=== PATIENT | male | born 1965 | race Caucasian/White ===

== ENCOUNTER 2017-03-20 12:35 | Observation (INO) | payer MEDICARE ==
[~2017-03-20] VITALS: Ht 170.2 cm; Wt 90.3 kg
[2017-03-20 12:36] VITALS: BP 153/102
--- NOTE | 2017-03-20 12:51 | Emergency Room Report ---
History of Present Illness Time Seen by 1246 Presenting Problem in Triage Pt arrived:Walked Presenting Problem:CHEST PRESSURE FOR THE LAST 24 HOURS. 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 N Clinical Suspician of Infection? N Mental Status: 1 - Regular (Normal Baseline) Sepsis Risk:Low Sepsis Risk Have you (or family members/close friends) recently traveled outside the [place]? N If Yes, where/when: Have you had exposure to infectious disease within the past month? TB? Other? Specify: Source patient, RN notes reviewed, family, RN/MD Exam Limitations no limitations Comment This is a 51-year-old male patient presenting to the emergency room with midsternal chest pressure, described as "squeezing", for the past 24 hours radiating to the interscapular area, as well as down the LEFT arm, associated with shortness of breath and diaphoresis. Patient's description of symptoms seem to be related somewhat to activity. Patient has a history of colon cancer, diagnosed 3 years ago, currently in remission. He had a stroke approximately as severe leaving his RIGHT side weak and numb. He has a strong family history of coronary artery disease with his father being diagnosed with congestive heart failure and coronary artery disease in his early 40s. Cardiac Chest Pain Chest pain indicative of cardiac Yes Timing/Duration 24 hours Severity/Quality moderate Location central Chest Pain Radiation jaw(s), shoulder(s), back Activities at Onset light activity Modifying Factors worse with exercise, improves with lying down Nitro Today/Relief no nitro taken today Aspirin Treatment Today no aspirin today Beta kwaku treatment today no beta kwaku taken Cardiac risk factors Uncontrolled HTN, Elevated lipids, + family history, HTN controlled, high stress, sedentary lifestyle Prior Workup/Intervention no prior cardiac workup ALLERGIES Coded Allergies: No Known Drug Allergies (03/20/17) Home Medications Reported Medications OXYCODONE HCL (Oxycodone Hcl) 15 MG PO Q6H COLESTIPOL HCL (Colestipol HCl) 1 GM PO QID #120 Insulin Glargine (Lantus Insulin Vial) 60 UNITS SC QHS Alprazolam (Xanax 1MG) 1 MG PO TID #90 TAB DULOXETINE HCL (Duloxetine) 60 MG PO BID #60 Insulin Aspart, Recombinant (Novolog Flexpen) 60 UNITS SC TID #30 VIAL LISINOPRIL (Lisinopril) 20 MG PO DAILY History Medical History General CAD? No Angina: Yes MO: No Hypertension? Yes Hyperlipidemia? Yes CHF? No DVT? No PE? No COPD? No Asthma? No Anemia? No GERD? No Gastric ulcers? No GI Bleed? No Hernia? Yes Thyroid Problems? No Hypothyroidism? No CVA? Yes Seizures? No Diabetes? Yes Insulin Dependent: Yes Insulin Pump: No Home FSBS? Yes Renal Insuffiency? No End Stage Renal Disease? No UTI? No Stones? Yes BPH? Yes GB Disease: No Nephritic Syndrome? No Asplenia? No Hepatitis? No Sickle Cell Disease? No Arthritis? No Migraines? No Cataracts? No Glaucoma? No MRSA? Yes HIV? No TB? No Anxiety? Yes Depression? Yes Cancer? Yes Site: COLON More? No Immunization Hx Ped.Immunizations UTD Yes DT/Tetanus 1-4 YRS Flu N Pneumonia N Surgical Hx Previous Surgery?Y Appendectomy BACK-L4 L5 DISC RENAL STENT FOR STONES. TESTICLE SURGERY COLON WITH COLOSTOMY PORT A CATH Family History Family Hx Diabetes No CAD No Hypertension Yes Hyperlipidemia No Cancer Yes TB No Social History Smoking Hx Smoker: Never Smoker Tobacco: No Packs/day N/A Alcohol Alcohol: No Review of Systems All Other Systems Reviewed and Negative Respiratory shortness of breath Cardiovascular chest pain, palpitations Physical Exam Vital Signs Vital Signs Date Time Temp Pulse Resp B/P Pulse O2 O2 Flow FiO2 Ox Delivery Rate 03/20 182 97.9 62 18 126/70 100 ROOM AIR 03/20 1819 69 03/20 181 97.9 62 18 126/70 03/20 1819 98 ROOM AIR 03/20 181 98.3 69 16 127/95 98 03/20 1757 14 03/20 1646 66 14 132/96 98 03/20 1616 76 12 135/91 96 03/20 1544 78 16 173/108 99 03/20 1236 98.3 80 22 153/102 99 General Appearance normal appearance, WD/WN, mild distress Respiratory Status Yes: trachea midline, chest symmetrical, non tender chest. No: respiratory distress. Lung Sounds bilateral: normal breath sounds, lungs clear. Cardiovascular normal exam, regular rate/rhythm, no peripheral edema, no gallop, no JVD, no murmur, no rub, normal peripheral pulses Gastrointestinal normal bowel sounds, normal exam, non tender, soft, no organomegaly Extremities non-tender, normal range of motion, normal inspection Neurologic alert, oriented x 3, motor weakness (right sided), sensory deficit ( right sided) Mental status depressed affect Skin intact, normal color, warm/dry Medical Decision Making LABS/Meds/Orders Pt receiving controlled substance in ED? No Comment 16:45 - Case discussed with Dr Steven, advised the patient presentation and findings, also multiple risk factors, agreeable with management and plan to hospitalize patient at this time. Dr Steven also requested to consult with cardiology, Dr. Stan Kent, at this time as well. Care transferred Dr. Steven and Dr. Kent at this time. I'll write temporary admission orders, per hospital policy. Upon patient's arrival to the floor the unit nurse will contact Dr. Steven/Dr. Kent in order to obtain full admission/inpatient orders. 17:10 - Case also discussed with Dr. Kent, was of the above. Results/Orders Laboratory Tests 03/20/17 1530: Creatine Kinase 87, CK-MB (CK-2) Rel Index 0.7, CK and CKMB Interp 0.6, Troponin I < 0.02 03/20/17 1245: B-Natriuretic Peptide 29, Amylase 20 L, Lipase 60 L 03/20/17 1245: Sodium 140, Potassium 3.8, Chloride 103, Carbon Dioxide 29, BUN 6 L, Creatinine 0.8, Estimated Creat Clear 135, Estimated GFR (MDRD) 102, Glucose 187 H, Calcium 8.7, Total Bilirubin 0.4, AST 13 L, ALT 23, Alkaline Phosphatase 81, Creatine Kinase 97, CK-MB (CK-2) Rel Index 1.0, CK and CKMB Interp 1.0, Troponin I < 0.02, Total Protein 7.0, Albumin 3.4, Globulin 3.6 H, Albumin/Globulin Ratio 0.9 L, D-Dimer 183, WBC 4.6 L, RBC 4.75, Hgb 13.3 L, Hct 40.2 L, MCV 84.6, RDW 12.7, Plt Count 155, MPV 7.4, Gran % 70.5, Gran # 3.3, Lymphocytes % 17.2, Monocytes % 5.2, Eosinophils % 7.0, Basophils % 0.2, Lymphocytes # 0.8, Monocytes # 0.2, Eosinophils # 0.3, Basophils # 0.0, PUBS MCHC 33.1, MCH 28.0 Current Medication Orders Sig/Terra Start time Last Medication Dose Route Stop Time Status Admin Duloxetine HCl 60 MG DAILY 03/21 0900 AC PO Alprazolam 1 MG TID 03/20 2100 AC PO Insulin Glargine 45 UNITS QHS 03/20 2100 AC 03/20 SC 2105 Alprazolam 0 .STK-MED ONE 03/20 175 DC .ROUTE Ondansetron HCl 0 .STK-MED ONE 03/20 175 DC .ROUTE Morphine Sulfate 0 .STK-MED ONE 03/20 175 DC .ROUTE Alprazolam 1 MG ONCE ONE 03/20 1700 DC 03/20 PO 03/20 1701 1801 Diagnostic Test (Pha) 1 EACH W/MEALS&HS 03/20 1700 AC 03/21 FS 05/19 1659 0611 Insulin Human [rDNA See Dose W/MEALS&HS 03/20 1700 AC 03/20 origin] Insts (1) SC 2105 Lisinopril 20 MG DAILY 03/20 1700 AC 03/20 PO 1840 Morphine Sulfate 4 MG ONCE ONE 03/20 1700 DC 03/20 IV 03/20 1701 1757 Nicotine 21 MG DAILYP PRN 03/20 1700 AC TD Ondansetron HCl 4 MG ONCE ONE 03/20 1700 DC 03/20 IV 03/20 1701 1756 Clonidine HCl 0.1 MG ONCE ONE 03/20 1600 DC 03/20 PO 03/20 1601 1550 Clonidine HCl 0 .STK-MED ONE 03/20 1549 DC .ROUTE Aspirin 324 MG ONCE ONE 03/20 1300 DC 03/20 PO 03/20 1301 1300 Sodium Chloride 10 ML PRN PRN 03/20 1300 AC IV 03/21 1248 Aspirin 0 .STK-MED ONE 03/20 1259 DC .ROUTE Dose Instructions: (1)Insulin Human [rDNA origin]: SEE ADMIN CRITERIA FOR LOW INTENSITY SS Orders Procedure Date/time Status CARDIAC ENZYMES 09/07 0300 Complete DIET-2000 CALORIE ADA 03/20 D Complete CARDIAC ENZYMES 03/20 2100 Complete ADMITTED PT IS ACTUALLY IN BED 03/20 1831 Active Decision to admit 03/20 1625 Active CARDIAC ENZYMES 03/20 1517 Complete LIPASE 03/20 1332 Complete D-DIMER 03/20 1332 Complete BRAIN NATRIURETIC PEPTIDE 03/20 1332 Complete AMYLASE 03/20 1332 Complete ELECTROCARDIOGRAM REQUEST 03/20 1249 Active IV SALINE LOCK 03/20 1249 Active CBC WITH AUTO DIFF 03/20 1249 Complete CARDIAC ENZYMES 03/20 1249 Complete CHEM 12 PROFILE 03/20 1249 Complete ADMIT PATIENT 03/20 UNK Active 12 LEAD EKG-BESSON (INITIAL) 03/20 UNK Active PULSE OXIMETRY REQUEST 03/20 UNK Active OXYGEN REQUEST 03/20 UNK Active VITAL SIGNS 03/20 UNK Active OPTICAL MODEL MAKER AND TESTER 03/20 UNK Active POM NURSE HERMAN HOSE ORDER 03/20 UNK Active CODE STATUS 03/20 UNK Active PATIENT ACTIVITY ORDER 03/20 UNK Active [facility] PHYS CONSULT 03/20 UNK Active CM/EKG CM/order checker Rhythm Normal Sinus Rhythm Rate 88 Ectopy No Comments no acute ischemic changes EKG rate, NSR, rhythm, no evid. of ischemic chgs, no ectopy, normal QRS, normal CO, normal EKG, no EKG for comparison, non-spec. ST/Twave chgs, ST elevation, ST depression, LBBB, RBBB, ectopy, abnormal Q waves XRAY/CT/US XRAY/CT/US XRAY chest XR interpretation by discussed w/radiologist Xray Results no infiltrates, normal heart size, normal lung inflation angus Departure Departure Time of Disposition 1701 Disposition Still a Patient Clinical Impression Primary Impression: Chest pain Qualifiers: Chest pain type: unspecified Qualified Code: R07.9 - Chest pain, unspecified Condition STABLE Referrals DRISS WU APRN (Family) ED Critical Care Critical Care No at [phone]
[2017-03-20 13:01] LABS: HEMOGLOBIN 13.3 g/dL (14.1-18.0); LYMPH # 0.8 K/mm3 (0.7-4.5); LYMPH % 17.2 % (10-50)
[2017-03-20 13:19] LABS: BUN 6 mg/dL (7-18)
[2017-03-20 13:32] LABS: GFR (ESTIMATED) 102 ML/MIN (>60)
--- NOTE | 2017-03-20 14:30 | RADIOLOGY REPORT PS360 ---
CHEST-PORTABLE HISTORY: Chest pain CP ORDERING PHYSICIAN: Jake Álvarez MD PATIENT AGE: 51 years COMPARISON: 07/06/2016 FINDINGS: Left subclavian Port-A-Cath is present with the tip in the region superior vena cava. The cardiomediastinal silhouette and pulmonary vascularity are within normal limits. Left hilum appears somewhat prominent and may all be due to overlying vasculature. PA and lateral chest upright may firm. The lungs are clear without infiltrates, suspicious nodules, or pleural effusions. No acute bony abnormalities. IMPRESSION: Mild prominence of the left hilum. Consider follow-up with upright PA and lateral chest No acute finding
--- NOTE | 2017-03-20 14:30 | RADIOLOGY REPORT PS360 ---
CHEST-PORTABLE HISTORY: Chest pain CP ORDERING PHYSICIAN: Jake lÁvarez MD PATIENT AGE: 51 years COMPARISON: 07/06/2016 FINDINGS: Left subclavian Port-A-Cath is present with the tip in the region superior vena cava. The cardiomediastinal silhouette and pulmonary vascularity are within normal limits. Left hilum appears somewhat prominent and may all be due to overlying vasculature. PA and lateral chest upright may firm. The lungs are clear without infiltrates, suspicious nodules, or pleural effusions. No acute bony abnormalities. IMPRESSION: Mild prominence of the left hilum. Consider follow-up with upright PA and lateral chest No acute finding
--- NOTE | 2017-03-20 18:11 | HISTORY AND PHYSICAL REPORT ---
See Addendum History and Physical (FCA) Date of admission: 03/20/17 Chief complaint: chest pain History: History of Present Illness: Mr Dawkins is a 51 year old male with history of rectal cancer with colostomy, DM, pain management, and HTN who presented to [facility] ER after experiencing intermittent left anterior chest pain/pressure since yesterday afternoon. The pain did radiate up the left side of the neck and he was SOB. The intermittent discomfort persisted through today and his made him come to the ER. He did receive clonidine, ASA and NTG with pain relief. The pressure remains. He was admitted for cardiac workup. Dr. Kent was notified in the ER of patient admission and consult. He is a patient of Melissa [facility]son's [facility]. He has a complicated history of rectal cancer which has been treated with surgery, Chemo and radiation. He is followed by Dr. Henderson. He also describes 3 syncopal episodes which required CPR with transport to via helicopter. With one episode he was told that he had a stroke. The last episode was 1 year ago. No known previous cardiac events. Past Medical History: Medical History: CAD? No Angina: Yes MA: No Hypertension? Yes Hyperlipidemia? Yes CHF? No DVT? No PE? No COPD? No Asthma? No Anemia? No GERD? No Gastric ulcers? No GI Bleed? No Hernia? Yes Thyroid Problems? No Hypothyroidism? No CVA? Yes Seizures? No Diabetes? Yes Insulin Dependent: Yes Insulin Pump: No Home FSBS? Yes Renal Insuffiency? No UTI? No Stones? Yes BPH? Yes GB Disease: No Nephritic Syndrome? No Asplenia? No Hepatitis? No Sickle Cell Disease? No Arthritis? No Migraines? No Cataracts? No Glaucoma? No MRSA? Yes HIV? No TB? No Anxiety? Yes Depression? Yes Cancer? Yes Site: COLON More? No Additional hx: Tobacco use disorder Surgical history: Previous Surgery?Y Appendectomy BACK-L4 L5 DISC RENAL STENT FOR STONES. TESTICLE SURGERY COLON WITH COLOSTOMY PORT A CATH Medications: Reported Medications Insulin Glargine (Lantus Insulin Vial) 60 UNITS SC QHS Alprazolam (Xanax 1MG) 1 MG PO TID #90 TAB DULOXETINE HCL (Duloxetine) 60 MG PO BID #60 Insulin Aspart, Recombinant (Novolog Flexpen) 60 UNITS SC TID #30 VIAL OXYCODONE HCL (Oxycodone Hcl) 15 MG PO Q 6 LISINOPRIL (Lisinopril) 20 MG PO DAILY Allergies: Coded Allergies: No Known Drug Allergies (03/20/17) Family History: Family history: Postive for: CAD, DM, cancer. Social History: Smoking Hx Tobacco: Yes Smoker: Never Smoker Type: Snuff (dips) Packs/day: N/A Are you exposed to second hand No Alcohol: Alcohol: No Hx of Drug Use: Drug Use? No Patien't marital status is: Review of Systems: Constitutional No: chills. Cardiovascular Positive for: chest pain, edema. No: palpitations. Respiratory Positive for: shortness of air. No: hemoptysis, pleuritic pain, wheezing. GI Positive for: rectal pain. No: GERD, abdominal pain, constipation, diarrhea, hematemeis, hematochezia, melena, vomitting (colostomy). (male) No: frequency, hematuria. Neurological Positive for: syncope, weakness (right sided). No: dizziness, headache, seizure. Musculoskeletal No: extremity pain, joint pain. Psychiatric Positive for: anxious, depression. Physical Exam: Vital signs: 1ST Vital Signs Result Date Time Pulse Ox 99 03/20 1236 B/P 153/102 03/20 1236 Temp 98.3 03/20 1236 Pulse 80 03/20 1236 Resp 22 03/20 1236 Exam: General appearance: alert, no acute distress Eyes: anicteric, PERRLA ENT: mucous membranes moist Neck: non-tender, full range of motion, supple, carotid bruit (absent bilaterally), thyroid (normal) Cardiovascular: normal sinus rhythm, regular rate & rhythm Respiratory: clear to auscultation (bilat anterior and posterior) ABD: non-distended, normal bowel sounds, soft, no tenderness, no guarding, bowel sounds present, colostomy, hernia Extremities: normal exam, no peripheral edema, no calf tenderness Lab data: Labs: Laboratory Tests 03/20/17 1530: Creatine Kinase 87, CK-MB (CK-2) Rel Index 0.7, CK and CKMB Interp 0.6, Troponin I < 0.02 03/20/17 1245: B-Natriuretic Peptide 29, Amylase 20 L, Lipase 60 L 03/20/17 1245: Sodium 140, Potassium 3.8, Chloride 103, Carbon Dioxide 29, BUN 6 L, Creatinine 0.8, Estimated Creat Clear 135, Estimated GFR (MDRD) 102, Glucose 187 H, Calcium 8.7, Total Bilirubin 0.4, AST 13 L, ALT 23, Alkaline Phosphatase 81, Creatine Kinase 97, CK-MB (CK-2) Rel Index 1.0, CK and CKMB Interp 1.0, Troponin I < 0.02, Total Protein 7.0, Albumin 3.4, Globulin 3.6 H, Albumin/Globulin Ratio 0.9 L, D-Dimer 183, WBC 4.6 L, RBC 4.75, Hgb 13.3 L, Hct 40.2 L, MCV 84.6, RDW 12.7, Plt Count 155, MPV 7.4, Gran % 70.5, Gran # 3.3, Lymphocytes % 17.2, Monocytes % 5.2, Eosinophils % 7.0, Basophils % 0.2, Lymphocytes # 0.8, Monocytes # 0.2, Eosinophils # 0.3, Basophils # 0.0, PUBS MCHC 33.1, MCH 28.0 Radiology results: Results: 03/20/17 CXR IMPRESSION: Mild prominence of the left hilum. Consider follow-up with upright PA and lateral chest No acute finding Diagnosis(es): 1. Chest pain 2. IDDM (insulin dependent diabetes mellitus) 3. Weakness of right side of body 4. History of rectal cancer 5. Colostomy in place 6. Depression 7. Rectal pain, chronic Plan: Cardiac workup at 1811 at 1832
[2017-03-20 18:19] VITALS: BP 126/70
[2017-03-20 18:29] VITALS: BP 126/70
[2017-03-20 19:11] VITALS: BP 106/66
[2017-03-20 23:46] VITALS: BP 111/75
[2017-03-21] VITALS (7 sets, daily range): BP systolic 96–196; BP diastolic 48–79
--- NOTE | 2017-03-21 07:28 | PHARMACY CLINIC NOTE ---
Patient Demographics Patient Demographics Admission date: 03/20/17 Date: 03/21/17 Time: 726 Allergies Coded Allergies: No Known Drug Allergies (03/20/17) HEIGHT- FT: 5 IN: 7.00 K.323 VTE General Information Labs: Laboratory Tests 03/20 1245 Hematology Hgb (14.1 - 18.0 g/dL) 13.3 L Hct (42.0 - 52.0 %) 40.2 L Plt Count (142 - 424 K/mm3) 155 Disclaimer The following section includes nursing documentation that has been pulled in for pharmacy review. Patient's VTE score: 3 Patient's VTE Risk: LOW RISK Clinical trial participant? No VTE prophylaxis F [id number] VTE prophylaxis ordered? Yes Type of prophylaxis/treatment: HERMAN at 0728
--- NOTE | 2017-03-21 07:42 | CONSULT NOTE ---
Standard Demographics Patient Demo Date of Consultation: 03/21/17 Referring Provider: Sharan Steven MD Reason for Consultation: Chest pain PRIMARY DIAGNOSIS: CHEST PAIN Problem list Problem list: 1. History of rectal cancer diagnosed in 2013, status post surgery, chemotherapy and radiation with last surgery in 2015. A. History of colonoscopy this year without recurrence of cancer and thus far. 2. Diabetes mellitus, type II onset during his chemotherapy approximately 2014 3. Family history of coronary artery disease in both mother and father in their late 50s/early 60s 4. Hypertension, treated for about 5 years 5. History of CVA with right-sided weakness 6. Hyperlipidemia 7. Tobacco use in the form of snuff. 8. Cardiac cath, 11/28/2012, Dr. Johnson Tellez, mild CAD of LAD and RCA with normal LVEF. History of present illness: History of present illness: 51-year-old white male with history of rectal carcinoma status post surgery, chemotherapy and radiation of the last 3 years was admitted for onset of chest pressure at rest. Patient states symptoms began on the evening of 03/19/2017 with a heaviness in the chest. At times he would have a worsening of symptoms with radiation to the LEFT arm and shoulder and into the LEFT neck with associated shortness of breath and diaphoresis. The worst of the symptoms would only last about 15 minutes. He denies any aggravating or alleviating factors. He was brought to the emergency department at the insistence of his . He was admitted for observation. Troponins have returned normal 3. Electrocardiogram is sinus and normal. Patient does relate having a cardiac catheterization at [facility] approximately 2-3 years ago. Reportedly no need for intervention. Cardiology consulted for evaluation. Past Medical History: General: Hypertension Yes CVA Yes Seizures No TB No COPD No Asthma No Diabetes Yes Insulin Dependent Yes Insulin Pump No Angina Yes AR No Hyperlipidemia Yes Urinary Yes Cancer Yes Rheumatic H.D. No Ulcers No MRSA Yes GB Disease No Other HX: KIDNEY STONES Additional hx Tobacco use disorder Past Surgical HX: Previous Surgery?Y Appendectomy BACK-L4 L5 DISC RENAL STENT FOR STONES. TESTICLE SURGERY COLON WITH COLOSTOMY PORT A CATH Allergies Coded Allergies: No Known Drug Allergies (03/20/17) Home medications: Reported Medications OXYCODONE HCL (Oxycodone Hcl) 15 MG PO Q6H COLESTIPOL HCL (Colestipol HCl) 1 GM PO QID #120 Insulin Glargine (Lantus Insulin Vial) 60 UNITS SC QHS Alprazolam (Xanax 1MG) 1 MG PO TID #90 TAB DULOXETINE HCL (Duloxetine) 60 MG PO BID #60 Insulin Aspart, Recombinant (Novolog Flexpen) 60 UNITS SC TID #30 VIAL LISINOPRIL (Lisinopril) 20 MG PO DAILY Current Medications: Current Medications Oxycodone/Acetaminophen 1 TAB Q6H6 PO (DC) Duloxetine HCl 60 MG DAILY PO Oxycodone HCl 10 MG Q6H6 PO (DC) Oxycodone/Acetaminophen 1 TAB Q6H6 PO Oxycodone/Acetaminophen 0 .STK-MED ONE PO (DC) Oxycodone HCl 10 MG Q6HP PRN PO (DC) Oxycodone/Acetaminophen 0 .STK-MED ONE PO (DC) Insulin Glargine 0 .STK-MED ONE SC (DC) Alprazolam 1 MG TID PO Insulin Glargine 45 UNITS QHS SC (UNV) Alprazolam 0 .STK-MED ONE .ROUTE (DC) Ondansetron HCl 0 .STK-MED ONE .ROUTE (DC) Morphine Sulfate 0 .STK-MED ONE .ROUTE (DC) Alprazolam 1 MG ONCE ONE PO (DC) Diagnostic Test (Pha) 1 EACH W/MEALS&HS FS Insulin Human [rDNA origin] SEE ADMIN CRITERIA FOR LOW INTENSITY SS W/MEALS&HS SC (UNV) Lisinopril 20 MG DAILY PO (UNV) Morphine Sulfate 4 MG ONCE ONE IV (DC) Nicotine 21 MG DAILYP PRN TD (UNV) Ondansetron HCl 4 MG ONCE ONE IV (DC) Clonidine HCl 0.1 MG ONCE ONE PO (DC) Clonidine HCl 0 .STK-MED ONE .ROUTE (DC) Aspirin 324 MG ONCE ONE PO (DC) Sodium Chloride 10 ML PRN PRN IV Aspirin 0 .STK-MED ONE .ROUTE (DC) Immunization HX Ped.Immunizations UTD Yes DT/Tetanus Unknown Flu N Pneumonia Never Had TB Test in last year No Family history Family HX Family Hx Insignificant No Diabetes No CAD No Hypertension Yes Hyperlipidemia No Cancer Yes TB No Social Hx: Smoking HX Tobacco Yes Type SNUFF (dips) Packs/day N/A Are you/the child exposed to second-hand smoke: No Alcohol Alcohol: No Hx of Drug Use Drug Use? No Review of systems: Constitutional No: no symptoms reported. Respiratory see HPI. Cardiovascular see HPI, chest pain Gastrointestinal/Abdominal No no symptoms reported Genitourinary pain. Musculoskeletal No: no symptoms reported. Neurological Yes: weakness. Exam: Admission Vital Signs: 1ST Vital Signs Result Date Time Pulse Ox 99 03/20 1236 B/P 153/102 03/20 1236 Temp 98.3 03/20 1236 Pulse 80 03/20 1236 Resp 22 03/20 1236 O2 Delivery ROOM AIR 03/20 1819 O2 Flow Rate 2 03/20 2313 Last Vital Signs: Vital Signs Result Date Time Resp 18 03/21 0548 Pulse Ox 97 03/21 0353 B/P 104/56 03/21 0353 O2 Delivery ROOM AIR 03/21 0353 Temp 97.8 03/21 0353 Pulse 52 03/21 0353 O2 Flow Rate 2 03/20 2313 Exam General appearance: alert, awake, no acute distress Neck: no carotid bruit, no JVD Cardiovascular: regular rate & rhythm, no murmur Respiratory: clear to auscultation, good air movement ABD: soft, no tenderness Extremities: moves all, no peripheral edema, pedal pulses Neuro: alert, intact, oriented Laboratory data: Laboratory Tests 03/21/17 0613: POC Glucose 127 H 03/21/17 0310: Creatine Kinase 68, CK-MB (CK-2) Rel Index 0.7, CK and CKMB Interp < 0.5, Troponin I < 0.02 03/20/17 2100: Creatine Kinase 71, CK-MB (CK-2) Rel Index 0.7, CK and CKMB Interp < 0.5, Troponin I < 0.02 03/20/17 2059: POC Glucose 175 H 03/20/17 1530: Creatine Kinase 87, CK-MB (CK-2) Rel Index 0.7, CK and CKMB Interp 0.6, Troponin I < 0.02 03/20/17 1245: B-Natriuretic Peptide 29, Amylase 20 L, Lipase 60 L 03/20/17 1245: Sodium 140, Potassium 3.8, Chloride 103, Carbon Dioxide 29, BUN 6 L, Creatinine 0.8, Estimated Creat Clear 135, Estimated GFR (MDRD) 102, Glucose 187 H, Calcium 8.7, Total Bilirubin 0.4, AST 13 L, ALT 23, Alkaline Phosphatase 81, Creatine Kinase 97, CK-MB (CK-2) Rel Index 1.0, CK and CKMB Interp 1.0, Troponin I < 0.02, Total Protein 7.0, Albumin 3.4, Globulin 3.6 H, Albumin/Globulin Ratio 0.9 L, D-Dimer 183, WBC 4.6 L, RBC 4.75, Hgb 13.3 L, Hct 40.2 L, MCV 84.6, RDW 12.7, Plt Count 155, MPV 7.4, Gran % 70.5, Gran # 3.3, Lymphocytes % 17.2, Monocytes % 5.2, Eosinophils % 7.0, Basophils % 0.2, Lymphocytes # 0.8, Monocytes # 0.2, Eosinophils # 0.3, Basophils # 0.0, PUBS MCHC 33.1, MCH 28.0 Plan: Assessment: 1. Chest pain, unknown etiology but with atypical features. Troponins normal 3 with electrocardiogram sinus and normal. 2. Cardiac cath, 11/28/2012, [facility], Dr. Johnson Tellez, Mild, non-flow limiting CAD with normal LVEF. 3. History of rectal cancer, s/p surgery, chemo and radiation 4. Insulin-dependent diabetes mellitus since chemotherapy 5. Hypertension 6. Hyperlipidemia 7. Mild anemia Recommendations: 1. Echo reviewed today with preserved LVEF and no significant valve disease. 2. With mild CAD by cath in 2012 and atypical features of chest pain, normal troponins and normal EKG, it is not felt that patient needs further cardiac workup in the hospital. 3. OK for discharge home with plans for outpatient lexiscan myoview and follow up in 2 wks. at [id number]
--- NOTE | 2017-03-21 08:09 | ACUTE CARE PROGRESS NOTE (QUA) ---
Progress Notes Subjective Date 03/21/17 Time 0730 Note Pt resting quietly in bed this morning. He denies any CP or SOB. He reports some chronic back and hip discomfort from laying in bed so long. He is voiding normally, reports normal stools per colostomy. Objective Findings Last VS-Temp:97.6 B/P:96/48 Pulse:56 Resp:18 SaO2:95 ROOM AIR Last weight lbs:199 oz:2 K.323 Method:Bed Scales Exam General appearance: alert, awake, no acute distress Cardiovascular: regular rate & rhythm, normal peripheral pulses Respiratory: CTAB A&P ABD: non-distended, no rebound, soft, no tenderness, no guarding, no organomegaly, no palpable mass, bowel sounds present, colostomy present LLQ Extremities: no peripheral edema, warm, no calf tenderness, bilateral HERMAN hose in place Neuro: alert, oriented, speech clear, no focal deficit Reviewed: vital signs, lab results, radiology report, consult note, nursing notes Assessment/Plan Problem List 1. Chest pain 2. IDDM (insulin dependent diabetes mellitus) 3. Weakness of right side of body 4. History of rectal cancer 5. Colostomy in place 6. Depression 7. Rectal pain, chronic Patient condition Stable Plan: Cardiology note seen and appreciated. Plan for Echo today. This inpt stay is expected to cross 2 MNs from start of care Yes at 0808
--- NOTE | 2017-03-21 16:27 | RADIOLOGY REPORT PS360 ---
PROCEDURE: 2-D M-mode and color Doppler study INDICATIONS FOR THE TEST: Chest pain X COPD Heart Murmur Tobacco Smoking Palpitations Fatigue Syncope Edema HypertensionXDiabetes MellitusX Rheumatic Fever SOB LOPES Obesity HyperlipidemiaX Family History HDX Additional History PATIENT INFORMATION HEIGHT: 66 WEIGHT:199 GENDER: Male B/P:104/56 2-D/M-MODE INTERPRETATION: 2-D MEASUREMENTS OBSERVED VALUES IN CMS Right Ventricular Dimension (RVDd) 1.7 Interventricular Septum (Thickness)(IVsd) 1.0 Left Ventricular Internal Dimensions(LVIDd) 4.9 Left Ventricular Posterior Wall (Thickness)(LVPWd) 1.0 Aortic Root 2.8 Aortic Cusp Separation 2.2 Left Atrial Dimensions (LAD) 3.5 2D 1. Left atrium is normal size, left ventricle is normal size, there is no concentric left ventricular hypertrophy, visually estimated ejection fraction of 55% with no obvious regional wall motion abnormality. 2. The right atrium and right ventricle are normal size and contractility. 3. The aortic valve is minimally thickened and fibrosed. 4. The mitral and tricuspid valve is grossly normal. 5. The pulmonic valve is poorly visualized. 6. No significant pericardial effusion noted. DOPPLER INTERROGATION: Doppler interrogation of the aortic, mitral and tricuspid valve reveals presence of mild mitral and tricuspid regurgitation, tricuspid regurgitant jet velocity insufficient for calculation of the right ventricular systolic pressure, diastolic parameters are within normal range. CONCLUSION: 1. Normal left ventricular size, preserved left ventricular systolic function, visually estimated ejection fraction 55% with no obvious regional wall motion abnormality. Diastolic parameters are within normal range. 2. Mild mitral and tricuspid regurgitation. 3. No significant pericardial effusion noted.
--- NOTE | 2017-03-21 20:05 | ACUTE CARE PROGRESS NOTE (QUA) ---
Progress Notes Subjective Date 03/21/17 Time 2003 Note He states that he doesn't feel well this evening. He still has some chest discomfort. He was cleared by cardiology today. He says he hasn't had much appetite and has been able to eat much today. Objective Findings Laboratory Tests 03/21/17 1134: POC Glucose 126 H 03/21/17 0613: POC Glucose 127 H 03/21/17 0310: Creatine Kinase 68, CK-MB (CK-2) Rel Index 0.7, CK and CKMB Interp < 0.5, Troponin I < 0.02 03/20/17 2100: Creatine Kinase 71, CK-MB (CK-2) Rel Index 0.7, CK and CKMB Interp < 0.5, Troponin I < 0.02 03/20/172058: POC Glucose 175 H Last VS-Temp:97.4 B/P:122/66 Pulse:52 Resp:16 SaO2:96 ROOM AIR Last weight lbs:199 oz:2 K.323 Method:Bed Scales Exam General appearance: he seems concerned and depressed Cardiovascular: regular rate & rhythm Respiratory: no respiratory distress ABD: soft Extremities: no peripheral edema Assessment/Plan Problem List 1. Chest pain 2. IDDM (insulin dependent diabetes mellitus) 3. Weakness of right side of body 4. History of rectal cancer 5. Colostomy in place 6. Depression 7. Rectal pain, chronic Patient condition Stable Plan: make medication changes This inpt stay is expected to cross 2 MNs from start of care Yes at 2005
[2017-03-22 03:59] VITALS: BP 108/68
[2017-03-22 07:26] VITALS: BP 118/79
[2017-03-22 07:47] VITALS: BP 118/79
--- NOTE | 2017-03-22 08:42 | ACUTE CARE PROGRESS NOTE (QUA) ---
See Addendum Progress Notes Subjective Date 03/22/17 Time 0730 Note Patient resting quietly in bed, reports he is feeling somewhat better today. He continues with chronic pain, no chest pain or SOB, tolerating meals well, voiding normally. Objective Findings Last VS-Temp:98.2 B/P: 118/79 Pulse:56 Resp:18 SaO2:96 ROOM AIR Last weight lbs: 199 oz: 2 K.323 Method: Bed Scales 03/21/17 Echo: 1. Normal left ventricular size, preserved left ventricular systolic function, visually estimated ejection fraction 55% with no obvious regional wall motion abnormality. Diastolic parameters are within normal range. 2. Mild mitral and tricuspid regurgitation. 3. No significant pericardial effusion noted. Exam General appearance: alert, awake, no acute distress Cardiovascular: regular rate & rhythm, normal peripheral pulses Respiratory: CTAB A&P, slightly diminished RLL ABD: non-distended, no rebound, soft, no tenderness, no guarding, no organomegaly, no palpable mass, bowel sounds present, colostomy (LLQ) Extremities: moves all, no peripheral edema, bilateral HERMAN hose in place Neuro: alert, oriented, speech clear, no focal deficit Reviewed: medications, vital signs, lab results, radiology report, consult note, nursing notes Assessment/Plan Problem List 1. Chest pain 2. IDDM (insulin dependent diabetes mellitus) 3. Weakness of right side of body 4. History of rectal cancer 5. Colostomy in place 6. Depression 7. Rectal pain, chronic Patient condition Stable Plan: Cardiology note seen and appreciated. Continue current care. Consider d/c home today. This inpt stay is expected to cross 2 MNs from start of care Yes at 0842 at 0854
[2017-03-22 11:23] VITALS: BP 127/78
[2017-03-22 12:18] VITALS: BP 127/78
--- NOTE | 2017-03-24 21:24 | DISCHARGE SUMMARY STANDARD ---
Discharge Summary (FCA2) Date of admission: 03/20/17 Date of discharge: 03/22/17 Problem List: 1. Chest pain 2. IDDM (insulin dependent diabetes mellitus) 3. Weakness of right side of body 4. History of rectal cancer 5. Colostomy in place 6. Depression 7. Rectal pain, chronic History of present illness: Mr. Dawkins is a 51-year-old white male with history of rectal carcinoma status post surgery, chemotherapy and radiation of the last 3 years who was admitted for onset of chest pressure at rest. Patient stated his symptoms began on the evening of 03/19/2017 with a heaviness in the chest. At times he would have a worsening of symptoms with radiation to the LEFT arm and shoulder and into the LEFT neck with associated shortness of breath and diaphoresis. The worst of the symptoms would only last about 15 minutes. He denied any aggravating or alleviating factors. He was brought to the emergency department at the insistence of his . He was admitted for observation. Troponins returned normal 3. Electrocardiogram was sinus and normal. Patient did relate having a cardiac catheterization at [facility] approximately 2-3 years ago with eportedly no need for intervention. Cardiology was consulted for evaluation. He is a patient of [facility] and is followed by Dr. Henderson. He also described 3 syncopal episodes which required CPR with transport to via helicopter. With one episode he was told that he had a stroke. The last episode was 1 year ago. No known previous cardiac events. Exam on admission: 1ST Vital Signs Result Date Time Pulse Ox 99 03/20 1236 B/P 153/102 03/20 1236 Temp 98.3 03/20 1236 Pulse 80 03/20 1236 Resp 22 03/20 1236 Exam: General appearance: alert, no acute distress Eyes: anicteric, PERRLA ENT: mucous membranes moist Neck: non-tender, full range of motion, supple, carotid bruit (absent bilaterally), thyroid (normal) Cardiovascular: normal sinus rhythm, regular rate & rhythm Respiratory: clear to auscultation (bilat anterior and posterior) ABD: non-distended, normal bowel sounds, soft, no tenderness, no guarding, bowel sounds present, colostomy, hernia Extremities: normal exam, no peripheral edema, no calf tenderness Hospital Course: Patient remained stable after admission. He had chronic back and leg pain. He was seen by cardiology with the following assessment: 1. Chest pain, unknown etiology but with atypical features. Troponins normal 3 with electrocardiogram sinus and normal. 2. Cardiac cath, 11/28/2012, [facility], Dr. Johnson Tellez, Mild, non-flow limiting CAD with normal LVEF. 3. History of rectal cancer, s/p surgery, chemo and radiation 4. Insulin-dependent diabetes mellitus since chemotherapy 5. Hypertension 6. Hyperlipidemia 7. Mild anemia Cardiology Recommendations: 1. Echo reviewed with noted preserved LVEF and no significant valve disease. 2. With mild CAD by cath in 2012 and atypical features of chest pain, normal troponins and normal EKG, patient was felt not to need further cardiac workup in the hospital. 3. OK for discharge home with plans for outpatient lexiscan myoview and follow up in 2 wks. Medications were adjusted for pain management. On 03/22/17 he was stable for discharge. Laboratory data this visit: 03/20/17 1530: Creatine Kinase 87, CK-MB (CK-2) Rel Index 0.7, CK and CKMB Interp 0.6, Troponin I < 0.02 03/20/17 1245: B-Natriuretic Peptide 29, Amylase 20 L, Lipase 60 L 03/20/17 1245: Sodium 140, Potassium 3.8, Chloride 103, Carbon Dioxide 29, BUN 6 L, Creatinine 0.8, Estimated Creat Clear 135, Estimated GFR (MDRD) 102, Glucose 187 H, Calcium 8.7, Total Bilirubin 0.4, AST 13 L, ALT 23, Alkaline Phosphatase 81, Creatine Kinase 97, CK-MB (CK-2) Rel Index 1.0, CK and CKMB Interp 1.0, Troponin I < 0.02, Total Protein 7.0, Albumin 3.4, Globulin 3.6 H, Albumin/Globulin Ratio 0.9 L, D-Dimer 183, WBC 4.6 L, RBC 4.75, Hgb 13.3 L, Hct 40.2 L, MCV 84.6, RDW 12.7, Plt Count 155, MPV 7.4, Gran % 70.5, Gran # 3.3, Lymphocytes % 17.2, Monocytes % 5.2, Eosinophils % 7.0, Basophils % 0.2, Lymphocytes # 0.8, Monocytes # 0.2, Eosinophils # 0.3, Basophils # 0.0, PUBS MCHC 33.1, MCH 28.0 Imagin03/20/17 CXR IMPRESSION: Mild prominence of the left hilum. Consider follow-up with upright PA and lateral chest No acute finding ECHO 03/21/17 CONCLUSION: 1. Normal left ventricular size, preserved left ventricular systolic function, visually estimated ejection fraction 55% with no obvious regional wall motion abnormality. Diastolic parameters are within normal range. 2. Mild mitral and tricuspid regurgitation. 3. No significant pericardial effusion noted. Discharge medications: Continue taking these medications: LISINOPRIL (Lisinopril) 20 MG TABLET 20 MILLIGRAM ORAL DAILY Insulin Glargine (Lantus Insulin Vial) 100 UNITS/ML INJ 60 UNITS Subcutaneous Injection AT BEDTIME NIGHTLY Alprazolam (Xanax 1MG) 1 MG TABLET 1 MILLIGRAM ORAL THREE TIMES A DAY Qty = 90 DULOXETINE HCL (Duloxetine) 60 MG CAPSULE.DR 60 MILLIGRAM ORAL TWICE A DAY Qty = 60 Insulin Aspart, Recombinant (Novolog Flexpen) 100 UNIT/ML VIAL 60 UNITS Subcutaneous Injection THREE TIMES A DAY Qty = 30 OXYCODONE HCL (Oxycodone Hcl) 15 MG TABLET 15 MILLIGRAM ORAL EVERY 6 HOURS COLESTIPOL HCL (Colestipol HCl) 1 GM TABLET 1 GRAM ORAL FOUR TIMES A DAY Qty = 120 Start taking the following new medications: Sucralfate (Carafate Tab) 1 GM TABLET 1 GRAM ORAL BEFORE MEALS AND AT BEDTIME Qty = 120 Refills = 1 Disposition: Discharged to home in stable and satisfactory condition. Follow up: 5 DAYS with Melissa Gustafson APRN Activity: Limited activity Diet: Continue same diet Discharge to: HOME Agency needed? N Meds as per reconciliation sheet. at 0076
--- OUTSIDE RECORDS SUMMARY | 2017-04-20 21:54 | External Medical Summary Rpt ---
Author Author [employer] Organization [employer] Address Unknown Phone Unavailable Purpose Continuity of Care Document - through 2016
--- OUTSIDE RECORDS SUMMARY | 2017-04-20 21:54 | External Medical Summary Rpt ---
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
--- OUTSIDE RECORDS SUMMARY | 2017-04-20 21:54 | External Medical Summary Rpt ---
Author Author , ROSE QUINN Address Unknown Phone [email or web address] Purpose Continuity of Care Document - 11-05-2016 [...]
--- OUTSIDE RECORDS SUMMARY | 2017-04-20 21:54 | External Medical Summary Rpt ---
Demographics Preferred Language Persian Marital Status Unknown Religion Affiliation Unknown Race Unknown Ethnic Group Unknown Author Author [place] Address Unknown Phone Immunization No patient found.
--- OUTSIDE RECORDS SUMMARY | 2017-04-20 21:54 | External Medical Summary Rpt ---
Demographics Preferred Language Upper Sorbian Marital Status Unknown Mormonism Affiliation Unknown Race Unknown Ethnic Group Unknown Author Author [place] Address Unknown Phone Immunization No patient found.
--- OUTSIDE RECORDS SUMMARY | 2017-04-20 21:55 | External Medical Summary Rpt ---
Author Author [facility] Henning, [employer] [facility] [employer] Address Unknown Phone Unavailable Results Glucose [Mass/volume] in Capillary blood by Glucometer Observa Value Referen Units Interpr Notes Date tion ce etation Range Glucose 70 - 110 mg/dl Normal No Sep 8 [Mass/vol informati 2017 6:22 ume] in on in AM Capillary source blood by data Glucomete r Glucose [Mass/volume] in Capillary blood by Glucometer Observa Value Referen Units Interpr Notes Date tion ce etation Range Glucose 70 - 110 mg/dl No No Sep 7 [Mass/vol informati informati 2017 9:12 ume] in on in on in PM Capillary source source blood by data data Glucomete r Glucose [Mass/volume] in Capillary blood by Glucometer Observa Value Referen Units Interpr Notes Date tion ce etation Range Glucose 70 - 110 mg/dl High No Sep 7 [Mass/vol informati 2017 4:21 ume] in on in PM Capillary source blood by data Glucomete r Glucose [Mass/volume] in Capillary blood by Glucometer Observa Value Referen Units Interpr Notes Date tion ce etation Range Glucose 70 - 110 mg/dl High No Sep 7 [Mass/vol informati 2017 ume] in on in 11:34 AM Capillary source blood by data Glucomete r Glucose [Mass/volume] in Capillary blood by Glucometer Observa Value Referen Units Interpr Notes Date tion ce etation Range Glucose 70 - 110 mg/dl High No Sep 7 [Mass/vol informati 2017 6:13 ume] in on in AM Capillary source blood by data Glucomete r Glucose [Mass/volume] in Capillary blood by Glucometer Observa Value Referen Units Interpr Notes Date tion ce etation Range Glucose 70 - 110 mg/dl High No Sep 6 [Mass/vol informati 2017 8:59 ume] in on in PM Capillary source blood by data Glucomete r Amylase [Enzymatic activity/volume] in Serum or Plasma Observa Value Referen Units Interpr Notes Date tion ce etation Range Amylase 25 - 115 U/L Low No Sep 6 [Enzymati informati 2016 c on in 12:45 PM activity/ source volume] data in Serum or Plasma Natriutietic peptide B [Mass/volume] in Serum or Plasma Observa Value Referen Units Interpr Notes Date tion ce etation Range Natriutie 0 - 100 pg/mL Normal No Sep 6 tic 2017 peptide B on in 12:45 PM source [Mass/vol data ume] in Serum or Plasma Lipase [Enzymatic activity/volume] in Serum or Plasma Observa Value Referen Units Interpr Notes Date tion ce etation Range Lipase 73 - 393 U/L Low No Sep 6 [Enzymati informati 2017 c on in 12:45 PM activity/ source volume] data in Serum or Plasma Fibrin D-dimer FEU [Mass/volume] in Platelet poor plasma Observa Value Referen Units Interpr Notes Date tion ce etation Range Fibrin 0 - 400 ng/mL Normal The Sep 6 D-dimer D-Dimer 2017 FEU values 12:45 PM [Mass/vol are ume] in presented Platelet in units poor of plasma mass(ng/m L) ofD-Dimer units(DDU ).This test has been FDA approved as an aid in the assessmen tand evaluatio n of suspected DIC, and thromboem bolic eventsinc luding PE and DVT. However, it does not have approvalf or cut-off values for the exclusion of these condition s. CBC W Auto Differential panel in Blood Observa Value Referen Units Interpr Notes Date tion ce etation Range Basophils 0 - 0.2 K/MM3 Normal No Sep 6 inform2016 [#/volume on in 12:45 PM ] in source Blood by data Automated count Basophils 0.1 - 2.0 % Normal No Sep 6 /100 inform 2017 leukocyte on in 12:45 PM s in source Blood by data Automated count Eosinophi 0.0 - 0.4 K/mm3 Normal No Sep 6 ls informati 2017 [#/volume on in 12:45 PM ] in source Blood by data Automated count Eosinophi 0.1 - % Normal No Sep 6 ls/100 12.0 inform2016 leukocyte on in 12:45 PM s in source Blood by data Automated count Granulocy 1.3 - 8.0 K/mm3 Normal No Sep 6 [place] inform 2017 [#/volume on in 12:45 PM ] in source Blood by data Automated count Granulocy 37.0 - % Normal No Sep 6 [place]/100 80.0 informati 2017 leukocyte on in 12:45 PM s in source Blood by data Automated count Hematocri 42.0 - % Low No Sep 6 t [Volume 52.0 informati 2017 on in 12:45 PM Fraction] source of Blood data Hemoglobi 14.1 - g/dL Low No Sep 6 n 18.0 informati 2017 [Mass/vol on in 12:45 PM ume] in source Blood data Lymphocyt 0.7 - 4.5 K/mm3 Normal No Sep 6 es informati 2017 [#/volume on in 12:45 PM ] in source Unspecifi data ed specimen by Automated count Lymphocyt 10 - 50 % Normal No Sep 6 es inform 2017 [#/volume on in 12:45 PM ] in source Unspecifi data ed specimen by Automated count Erythrocy 27 - 31.2 pg Normal No Sep 6 te mean inform 2017 corpuscul on in 12:45 PM ar source hemoglobi data n [Entitic mass] Erythrocy 31.8 - g/dl Normal No Sep 6 te mean 35.4 informati 2017 corpuscul on in 12:45 PM ar source hemoglobi data n concentra tion [Mass/vol ume] by Automated count Erythrocy 82.2 - fl Normal No Sep 6 te mean 97.8 informati 2017 corpuscul on in 12:45 PM ar volume source [Entitic data volume] by Automated count Monocytes 0.1 - 1.0 K/mm3 Normal No Sep 6 inform 2017 [#/volume on in 12:45 PM ] in source Blood by data Automated count Monocytes 1.7 - 9.3 % Normal No Sep 6 /100 informati 2017 leukocyte on in 12:45 PM s in source Blood by data Automated count Platelet 7.4 - fl Normal No Sep 6 mean 10.4 informati 2017 volume on in 12:45 PM [Entitic source volume] data in Blood by Automated count Platelets 142 - 424 K/mm3 Normal No Sep 6 informati 2016 [#/volume on in 12:45 PM ] in source Blood data Erythrocy 4.6 - 6.2 M/mm3 Normal No Sep 6 [place] informati 2016 [#/volume on in 12:45 PM ] in source Amniotic data fluid Erythrocy 11.5 - % Normal No Sep 6 te 17.5 informati 2017 distribut on in 12:45 PM ion width source [Entitic data volume] by Automated count Leukocyte 4.8 - K/MM3 Low No Sep 6 s 10.8 informati 2016 [#/volume on in 12:45 PM ] in source Blood data Comprehensive metabolic 2000 panel in Serum or Plasma Observa Value Referen Units Interpr Notes Date tion ce etation Range 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: NURSE TO OBTAIN FROM PAC Albumin/G 1.1 - 1.8 No Low No Feb 18 lobulin informati informati 2016 9:10 [Mass on in on in AM ratio] in source source Serum or data data Plasma Albumin 3.4 - 5.0 gm/dL Low No Feb 18 [Mass/vol informati 2016 9:10 ume] in on in AM Serum or source Plasma data Alkaline 46 - 116 U/L Normal No Feb 18 phosphata informati 2016 9:10 se on in AM [Enzymati source c data activity/ volume] in Serum or Plasma Bilirubin 0.2 - 1.0 mg/dL Normal No Feb 18 .total informati 2016 9:10 [Mass/vol on in AM ume] in source Serum or data Plasma Urea 7 - 18 mg/dL Low No Feb 18 nitrogen informati 2016 9:10 [Mass/vol on in AM ume] in source Serum or data Plasma Calcium 8.5 - mg/dL Low No Feb 18 [Mass/vol 10.1 informati 2017 9:10 ume] in on in AM Serum or source Plasma data Chloride 98 - 107 mmoL/L Normal No Feb 18 [Moles/vo informati 2016 9:10 lume] in on in AM Serum or source Plasma data Carbon 21.0 - mmoL/L Normal No Feb 18 dioxide, 32.0 informati 2016 9:10 total on in AM [Moles/vo source lume] in data Serum or Plasma Creatinin 0.70 - mg/dL Normal No Feb 18 e 1.30 informati 2016 9:10 [Mass/vol on in AM ume] in source Serum or data Plasma Estimated >60 ML/MIN No REFERENCE Feb 7 informati RANGE: 2017 9:10 glomerula on in >60 AM r source ML/MIN/1. filtratio data 73 SQUARE n rate METERSIf (GF this patient is -A merican, then multiply theresult by 1.210. Globulin 1.3 - 3.2 gm/dL High No Feb 18 [Mass/vol informati 2016 9:10 ume] in on in AM Serum source data Glucose 74 - 106 mg/dL High No Feb 18 [Mass/vol informati 2016 9:10 ume] in on in AM Serum or source Plasma data Potassium 3.5 - 5.1 mmoL/L Normal Feb 182016 9:10 [Moles/vo on in AM lume] in source Serum or data Plasma Sodium 136 - 145 mmoL/L Normal No Feb 18 [Moles/vo informati 2016 9:10 lume] in on in AM Serum or source Plasma data Aspartate 15 - 37 U/L Normal Feb 18 inform2016 9:10 aminotran on in AM sferase source [Enzymati data c activity/ volume] in Serum or Plasma Alanine 12 - 78 U/L Normal Feb 18 aminotran 2016 9:10 sferase on in AM [Enzymati source c data activity/ volume] in Serum or Plasma Protein 6.4 - 8.2 gm/dL Normal No Feb 18 [Mass/vol informati 2016 9:10 ume] in on in AM Serum or source Plasma data CBC W Auto Differential panel in Blood Observa Value Referen Units Interpr Notes Date tion ce etation Range Basophils 0 - 0.2 K/MM3 Normal No Feb 182016 9:10 [#/volume on in AM ] in source Blood by data Automated count Basophils 0.1 - 2.0 % Normal No Feb 18 informati 2016 9:10 leukocyte on in AM s in source Blood by data Automated count Eosinophi 0.0 - 0.4 K/mm3 Normal No Feb 18 ls informati 2016 9:10 [#/volume on in AM ] in source Blood by data Automated count Eosinophi 0.1 - % Normal Feb 18 ls/100 12.0 informati 2016 9:10 leukocyte on in AM s in source Blood by data Automated count Granulocy 1.3 - 8.0 K/mm3 Normal No Feb 18 [place] informati 2016 9:10 [#/volume on in AM ] in source Blood by data Automated count Granulocy 37.0 - % Normal No Feb 18 [place]100 80.0 informati 2017 9:10 leukocyte on in AM s in source Blood by data Automated count Hematocri 42.0 - % Low No Feb 18 t [Volume 52.0 informati 2017 9:10 on in AM Fraction] source of Blood data Hemoglobi 14.1 - g/dL Low No Feb 18 n 18.0 informati 2017 9:10 [Mass/vol on in AM ume] in source Blood data Lymphocyt 0.7 - 4.5 K/mm3 Normal No Feb 18 es informati 2016 9:10 [#/volume on in AM ] in source Unspecifi data ed specimen by Automated count Lymphocyt 10 - 50 % Normal No Feb 18 es informati 2017 9:10 [#/volume on in AM ] in source Unspecifi data ed specimen by Automated count Erythrocy 27 - 31.2 pg Normal No Feb 18 te mean informati 2017 9:10 corpuscul on in AM ar source hemoglobi data n [Entitic mass] Erythrocy 31.8 - g/dl Normal No Feb 18 te mean 35.4 informati 2016 9:10 corpuscul on in AM ar source hemoglobi data n concentra tion [Mass/vol ume] by Automated count Erythrocy 82.2 - fl Normal No Feb 18 te mean 97.8 informati 2017 9:10 corpuscul on in AM ar volume source [Entitic data volume] by Automated count Monocytes 0.1 - 1.0 K/mm3 Normal No Feb 18 informati 2017 9:10 [#/volume on in AM ] in source Blood by data Automated count Monocytes 1.7 - 9.3 % Normal No Feb 18 /100 informati 2017 9:10 leukocyte on in AM s in source Blood by data Automated count Platelet 7.4 - fl Normal No Feb 18 mean 10.4 informati 2017 9:10 volume on in AM [Entitic source volume] data in Blood by Automated count Platelets 142 - 424 K/mm3 Normal No Feb 18 informati 2017 9:10 [#/volume on in AM ] in source Blood data Erythrocy 4.6 - 6.2 M/mm3 Low No Feb 18 [place] informati 2017 9:10 [#/volume on in AM ] in source Amniotic data fluid Erythrocy 11.5 - % Normal No Feb 18 te 17.5 informati 2017 9:10 distribut on in AM ion width source [Entitic data volume] by Automated count Leukocyte 4.8 - K/MM3 Low No Feb 18 s 10.8 informati 2017 9:10 [#/volume on in AM ] in source Blood data Glucose [Mass/volume] in Capillary blood by Glucometer Observa Value Referen Units Interpr Notes Date tion ce etation Range Glucose 70 - 110 mg/dl High No Feb 07 [Mass/vol informati 2017 9:40 ume] in on in AM Capillary source blood by data Glucomete r Comprehensive metabolic 2000 panel in Serum or Plasma Observa Value Referen Units Interpr Notes Date tion ce etation Range Albumin/G 1.1 - 1.8 No Low No Jan 30 lobulin informati informati 2016 [Mass on in on in 11:25 AM ratio] in source source Serum or data data Plasma Albumin 3.4 - 5.0 gm/dL Low No Jan 30 [Mass/vol informati 2016 ume] in on in 11:25 AM Serum or source Plasma data Alkaline 46 - 116 U/L Normal No Jan 30 phosphata informati 2016 se on in 11:25 AM [Enzymati source c data activity/ volume] in Serum or Plasma Bilirubin 0.2 - 1.0 mg/dL Normal No Jan 30 .total informati 2016 [Mass/vol on in 11:25 AM ume] in source Serum or data Plasma Urea 7 - 18 mg/dL Normal No Jan 30 nitrogen informati 2016 [Mass/vol on in 11:25 AM ume] in source Serum or data Plasma Calcium 8.5 - mg/dL Low No Jan 30 [Mass/vol 10.1 informati 2016 ume] in on in 11:25 AM Serum or source Plasma data Chloride 98 - 107 mmoL/L Normal No Jan 30 [Moles/vo informati 2016 lume] in on in 11:25 AM Serum or source Plasma data Carbon 21.0 - mmoL/L Normal No Jan 30 dioxide, 32.0 informati 2016 total on in 11:25 AM [Moles/vo source lume] in data Serum or Plasma Creatinin 0.70 - mg/dL Normal No Jan 30 e 1.30 informati 2017 [Mass/vol on in 11:25 AM ume] in source Serum or data Plasma Estimated >60 ML/MIN No REFERENCE Jan 30 informati RANGE: 2017 glomerula on in >60 11:25 AM r source ML/MIN/1. filtratio data 73 SQUARE n rate METERSIf (GF this patient is -A merican, then multiply theresult by 1.210. Globulin 1.3 - 3.2 gm/dL Normal No Jan 30 [Mass/vol informati 2016 ume] in on in 11:25 AM Serum source data Glucose 74 - 106 mg/dL High No Jan 30 [Mass/vol informati 2016 ume] in on in 11:25 AM Serum or source Plasma data Potassium 3.5 - 5.1 mmoL/L Normal No Jan 302016 [Moles/vo on in 11:25 AM lume] in source Serum or data Plasma Sodium 136 - 145 mmoL/L Normal No Jan 30 [Moles/vo informati 2016 lume] in on in 11:25 AM Serum or source Plasma data Aspartate 15 - 37 U/L Normal No Jan 302016 aminotran on in 11:25 AM sferase source [Enzymati data c activity/ volume] in Serum or Plasma Alanine 12 - 78 U/L Normal No Jan 30 aminotran 2016 sferase on in 11:25 AM [Enzymati source c data activity/ volume] in Serum or Plasma Protein 6.4 - 8.2 gm/dL Low No Jan 30 [Mass/vol informati 2016 ume] in on in 11:25 AM Serum or source Plasma data CBC W Auto Differential panel in Blood Observa Value Referen Units Interpr Notes Date tion ce etation Range Basophils 0 - 0.2 K/MM3 Normal No Jan 302016 [#/volume on in 11:25 AM ] in source Blood by data Automated count Basophils 0.1 - 2.0 % Normal No Jan 302016 leukocyte on in 11:25 AM s in source Blood by data Automated count Eosinophi 0.0 - 0.4 K/mm3 Normal No Jan 30 ls 2016 [#/volume on in 11:25 AM ] in source Blood by data Automated count Eosinophi 0.1 - % Normal No Jan 30 ls/100 12.0 2016 leukocyte on in 11:25 AM s in source Blood by data Automated count Granulocy 1.3 - 8.0 K/mm3 Normal No Jan 30 [place] inform2016 [#/volume on in 11:25 AM ] in source Blood by data Automated count Granulocy 37.0 - % Normal No Jan 30 [place]/100 80.0 informati 2016 leukocyte on in 11:25 AM s in source Blood by data Automated count Hematocri 42.0 - % Low No Jan 30 t [Volume 52.0 ati 2016 on in 11:25 AM Fraction] source of Blood data Hemoglobi 14.1 - g/dL Low No Jan 30 n 18.0 informati 2016 [Mass/vol on in 11:25 AM ume] in source Blood data Lymphocyt 0.7 - 4.5 K/mm3 Normal No Jan 30 es informati 2016 [#/volume on in 11:25 AM ] in source Unspecifi data ed specimen by Automated count Lymphocyt 10 - 50 % Normal No Jan 30 es informati 2016 [#/volume on in 11:25 AM ] in source Unspecifi data ed specimen by Automated count Erythrocy 27 - 31.2 pg Normal No Jan 30 te mean inform2016 corpuscul on in 11:25 AM ar source hemoglobi data n [Entitic mass] Erythrocy 31.8 - g/dl Normal No Jan 30 te mean 35.4 informati 2016 corpuscul on in 11:25 AM ar source hemoglobi data n concentra tion [Mass/vol ume] by Automated count Erythrocy 82.2 - fl Normal No Jan 30 te mean 97.8 informati 2016 corpuscul on in 11:25 AM ar volume source [Entitic data volume] by Automated count Monocytes 0.1 - 1.0 K/mm3 Normal No Jan 302016 [#/volume on in 11:25 AM ] in source Blood by data Automated count Monocytes 1.7 - 9.3 % Normal No Jan 30 /100 informati 2016 leukocyte on in 11:25 AM s in source Blood by data Automated count Platelet 7.4 - fl Low No Jan 30 mean 10.4 informati 2016 volume on in 11:25 AM [Entitic source volume] data in Blood by Automated count Platelets 142 - 424 K/mm3 Low No Jan 30 informati 2016 [#/volume on in 11:25 AM ] in source Blood data Erythrocy 4.6 - 6.2 M/mm3 Low No Jan 30 [place] informati 2016 [#/volume on in 11:25 AM ] in source Amniotic data fluid Erythrocy 11.5 - % Normal No Jan 30 te 17.5 informati 2016 distribut on in 11:25 AM ion width source [Entitic data volume] by Automated count Leukocyte 4.8 - K/MM3 Low No Jan 30 s 10.8 informati 2016 [#/volume on in 11:25 AM ] in source Blood data CBC W Auto Differential panel in Blood Observa Value Referen Units Interpr Notes Date tion ce etation Range Basophils 0 - 0.2 K/MM3 Normal No November 29 inform2016 [#/volume on in 12:15 PM ] in source Blood by data Automated count Basophils 0.1 - 2.0 % Normal No November 29 / inform2016 leukocyte on in 12:15 PM s in source Blood by data Automated count Eosinophi 0.0 - 0.4 K/mm3 Normal No November 29 ls informati 2016 [#/volume on in 12:15 PM ] in source Blood by data Automated count Eosinophi 0.1 - % Normal No November 29 ls/100 12.0 inform2016 leukocyte on in 12:15 PM s in source Blood by data Automated count Granulocy 1.3 - 8.0 K/mm3 Normal No November 29 [place] 2016 [#/volume on in 12:15 PM ] in source Blood by data Automated count Granulocy 37.0 - % Normal No November 29 [place]/100 80.0 2016 leukocyte on in 12:15 PM s in source Blood by data Automated count Hematocri 42.0 - % Low No November 29 t [Volume 52.0 ati 2016 on in 12:15 PM Fraction] source of Blood data Hemoglobi 14.1 - g/dL Low No November 29 n 18.0 inform2016 [Mass/vol on in 12:15 PM ume] in source Blood data Lymphocyt 0.7 - 4.5 K/mm3 Normal No November 29 es informati 2016 [#/volume on in 12:15 PM ] in source Unspecifi data ed specimen by Automated count Lymphocyt 10 - 50 % Normal No November 29 es informati 2016 [#/volume on in 12:15 PM ] in source Unspecifi data ed specimen by Automated count Erythrocy 27 - 31.2 pg Normal No November 29 te mean informati 2016 corpuscul on in 12:15 PM ar source hemoglobi data n [Entitic mass] Erythrocy 31.8 - g/dl Normal No November 29 te mean 35.4 informati 2016 corpuscul on in 12:15 PM ar source hemoglobi data n concentra tion [Mass/vol ume] by Automated count Erythrocy 82.2 - fl Normal No November 29 te mean 97.8 inform2016 corpuscul on in 12:15 PM ar volume source [Entitic data volume] by Automated count Monocytes 0.1 - 1.0 K/mm3 Normal No November 29 inform2016 [#/volume on in 12:15 PM ] in source Blood by data Automated count Monocytes 1.7 - 9.3 % Normal No November 29 /100 informati 2016 leukocyte on in 12:15 PM s in source Blood by data Automated count Platelet 7.4 - fl Low No November 29 mean 10.4 informati 2016 volume on in 12:15 PM [Entitic source volume] data in Blood by Automated count Platelets 142 - 424 K/mm3 Normal No November 29 inform2016 [#/volume on in 12:15 PM ] in source Blood data Erythrocy 4.6 - 6.2 M/mm3 Low No November 29 [place] informati 2016 [#/volume on in 12:15 PM ] in source Amniotic data fluid Erythrocy 11.5 - % Normal No November 29 te 17.5 informati 2016 distribut on in 12:15 PM ion width source [Entitic data volume] by Automated count Leukocyte 4.8 - K/MM3 Low No November 29 s 10.8 informati 2016 [#/volume on in 12:15 PM ] in source Blood data
--- OUTSIDE RECORDS SUMMARY | 2017-04-20 21:55 | External Medical Summary Rpt ---
[...] Date tion ce etation Range COMMENTS TO [employer] HANDLERS: NURSE TO OBTAIN FROM PAC Albumin/G 1.1 [...]
--- OUTSIDE RECORDS SUMMARY | 2017-04-21 01:33 | External Medical Summary Rpt ---
Author Author RO[facility] Address Unknown Phone Purpose Continuity of Care Document - 11-29-2016 through 2016
--- OUTSIDE RECORDS SUMMARY | 2017-04-21 01:33 | External Medical Summary Rpt ---
Demographics Preferred Language Welsh Marital Status Unknown Bahai Affiliation Unknown Race Unknown Ethnic Group Unknown Author Author [facility] Address Unknown Phone Immunization No patient found.
--- OUTSIDE RECORDS SUMMARY | 2017-04-21 01:33 | External Medical Summary Rpt ---
Demographics Preferred Language [place] Marital Status Unknown Lutheran Affiliation Unknown Race Unknown Ethnic Group Unknown Author Author [facility] Address Unknown Phone Immunization No patient found.
--- OUTSIDE RECORDS SUMMARY | 2017-04-21 01:34 | External Medical Summary Rpt ---
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
--- OUTSIDE RECORDS SUMMARY | 2017-04-21 01:34 | External Medical Summary Rpt ---
[...] Date tion ce etation Range COMMENTS TO AUDIOLOGY TECHNICIAN: NURSE TO OBTAIN FROM PAC Albumin/G 1.1 [...]
== END 2017-03-22 11:50 | disposition home or self-care (01) ==
LOC: ER 12:35 → 2ND 16:51
PROVIDERS: Emergency Medicine
DX: R07.9 Chest pain, unspecified (principal); E11.9 Type 2 diabetes mellitus without complications; Z85.048 Personal history of other malignant neoplasm of rectum, rectosigmoid junction, and anus; Z92.21 Personal history of antineoplastic chemotherapy; Z92.3 Personal history of irradiation; Z93.3 Colostomy status; F32.9 Major depressive disorder, single episode, unspecified; K62.89 Other specified diseases of anus and rectum; G89.29 Other chronic pain; Z79.4 Long term (current) use of insulin; Z79.891 Long term (current) use of opiate analgesic; Z79.899 Other long term (current) drug therapy; F17.220 Nicotine dependence, chewing tobacco, uncomplicated; I10 Essential (primary) hypertension; I69.351 Hemiplegia and hemiparesis following cerebral infarction affecting right dominant side; I25.10 Atherosclerotic heart disease of native coronary artery without angina pectoris